=== PATIENT | male | born 1955 | race Caucasian/White ===

== ENCOUNTER 2021-04-30 10:51 | Inpatient (IN) | payer MEDICARE, MEDICAID ==
[2021-04-30] VITALS (17 sets, daily range): BP systolic 100–150; BP diastolic 48–84
[~2021-04-30] VITALS: Ht 177.8 cm; Wt 75.0 kg
[~2021-04-30 10:51] MED LIST: CHOL400T32 PO; GABA-530 PO; LORA-269 PO; PYRI-3 PO; QUET-1 PO; ZIPR60CA7 PO; ceFOXitin 2GM-NS 100mL ADDvant 100 ML IV ONE; famotidine 20mg tablet PO ONE
[2021-04-30] MEDS ORDERED: fentaNYL/PF 50MCG/1 ML 2ML syringe IV PRN ×2 (11:25)
[2021-04-30] MEDS ORDERED: morphine 2 MG/ML inj. syringe IV PRN (11:25)
[2021-04-30] MEDS ORDERED: ringers solution, lacted 1,000 ML IV SCH (11:25)
[2021-04-30] MEDS ORDERED: hydrALAZINE 20mg/ml inj. IV PRN (11:25)
[2021-04-30] MEDS ORDERED: morphine 4 MG/ML inj SYRINge IV PRN (11:25)
[2021-04-30] MEDS ORDERED: labetalol 20mg/4ml (5mg/ml) syringe IV PRN (11:25)
[2021-04-30] MEDS ORDERED: ondansetron/PF 4mg/2ml inj IV PRN (11:25)
[2021-04-30] MEDS: ringers solution, lacted 1,000 ML IV SCH (11:51)
[2021-04-30 12:04] LABS: BASOPHILS % (AUTO) 0.6 % (0-1); EOSINOPHILS # (AUTO) 0.1 X10'3 (0-0.9); EOSINOPHILS % (AUTO) 1.2 % (0-6); LYMPHOCYTES # (AUTO) 1.4 X10'3 (1.1-4.8); LYMPHOCYTES % (AUTO) 23.4 % (21-51); MEAN CORPUSCULAR HEMOGLOBIN 31.9 PG (27.0-31.0); MEAN CORPUSCULAR HGB CONC 33.9 g/dL (33.0-36.5); MEAN CORPUSCULAR VOLUME 94.1 FL (78-98); MEAN PLATELET VOLUME 9.8 FL (7.4-10.4); MONOCYTES # (AUTO) 0.3 X10'3 (0-0.9); MONOCYTES % (AUTO) 5.9 % (2-12); NEUTROPHILS % (AUTO) 68.9 % (42-75); PRE OP HEMATOCRIT 42.9 % (42.0-52.0); PRE OP HEMOGLOBIN 14.5 g/dL (14.0-17.9); PRE OP PLATELET COUNT 127 X10'3 (140-440); RED BLOOD COUNT 4.55 X10'6 (4.70-6.10); RED CELL DISTRIBUTION WIDTH 14.4 % (11.5-14.5)
[2021-04-30 12:14] LABS: ALBUMIN 3.5 G/DL (3.4-5.0); ALKALINE PHOSPHATASE 58 IU/L (46-116); BLOOD UREA NITROGEN 6 MG/DL (7-18); BUN/CREATININE RATIO 7.2 (5.4-32.0); CALCIUM 8.2 MG/DL (8.5-10.1); CHLORIDE 109 MMOL/L (99-107); CREATININE 0.83 MG/DL (0.60-1.10); PRE OP ALT 33 U/L (30-65); PRE OP ANION GAP 7 (8-16); PRE OP AST 31 U/L (10-37); PRE OP GLUCOSE 115 MG/DL (70-104); PRE OP POTASSIUM 4.1 MMOL/L (3.4-5.1); PRE OP SODIUM 141 MMOL/L (135-145); TOTAL CARBON DIOXIDE 24.7 MMOL/L (24-32); TOTAL PROTEIN 6.9 G/DL (6.4-8.2); eGFR > 90 ML/MIN
[2021-04-30] MEDS ORDERED: BUPIVAcaine/PF 2.5 mg/ml (0.25%) 30ml vial ONE (12:26)
[2021-04-30] MEDS ORDERED: iohexol 300 MG/1 ML 50ml polymer ONE (12:27)
[2021-04-30] MEDS ORDERED: ceFAZolin 1000mg inj ONE (12:27)
[2021-04-30] MEDS ORDERED: fentaNYL /PF 50mcg/ml 5ml ampule ONE (12:31)
[2021-04-30] MEDS ORDERED: midazolam 1 mg/ML 2ml injection ONE (12:31)
[2021-04-30] MEDS ORDERED: propofol inj 20 ML IV ONE (12:33)
[2021-04-30] MEDS ORDERED: LIDOcaine 2% (20mg/ml) 5ml vial ONE (12:33)
[2021-04-30] MEDS ORDERED: rocuronium 10mg/ml inj IV ONE (12:33)
[2021-04-30] MEDS ORDERED: BUPIVACAINE liposomal/PF 13.3 MG/ML vial IM ONE (12:37)
[2021-04-30] MEDS ORDERED: BUPIVAcaine/PF 2.5mg/ml (0.25%) 10ml vial ONE (12:37)
[2021-04-30] MEDS ORDERED: sevoflurane 250ml liquid IH ONE (12:44)
[2021-04-30] MEDS ORDERED: neostigmine methylsulfate 1 MG/ML 10ml vial ONE (14:15)
[2021-04-30] MEDS ORDERED: glycopyrrolate 0.2mg/ml inj ONE (14:15)
[2021-04-30] MEDS ORDERED: dexamethasone sod phosphate 4mg/ml inj. ONE (14:15)
[2021-04-30] MEDS ORDERED: ondansetron/PF 4mg/2ml inj ONE (14:15)
[2021-04-30] MEDS ORDERED: phenylephrine 10mg/ml inj. ONE (14:15)
--- NOTE | 2021-04-30 14:45 | NUR ---
Received from OR via , accompanied by Anesthesiologist DR HU and report given by Anesthesiolgist. AWAKENS TO VOICE. VITALS STABLE. DRESSINGS DI. SARAH PAIN. ABD SOFT. SHAIKH WITH CLEAR URINE.
--- NOTE | 2021-04-30 15:48 | NUR ---
RECEIVED REPORT FROM RECOVERY
--- NOTE | 2021-04-30 15:55 | NUR ---
Report called to receiving nurse. Transferred via BED Belongings . Special Issues communicated to receiving nurse.AWAKE AND ORIENTED. VITALS STABLE. DRESSINGS DI. STATES PAIN IMPRIVING. TO SURGICAL RM 345A AT THIS TIME.
[2021-04-30] MEDS ORDERED: LORA-268 PO (16:10)
[2021-04-30] MEDS ORDERED: VITD400T PO (16:10)
[2021-04-30] MEDS ORDERED: GABA300C PO (16:10)
[2021-04-30] MEDS ORDERED: sugammadex 200mg/2ml injection IV ONE (16:23)
--- NOTE | 2021-04-30 16:31 | NUR ---
PT. ORIENTED TO ROOM 345A. CALL LIGHT WITHIN REACH. POST OP VS STARTED AND ARE STABLE. PT HAS NO COMPLAINTS AT THIS TIME OTHER THAN HE FEEL LIKE HE NEEDS TO PEE. F/C DRAINING PROPERLY TO GRAVITY AND PT REASSURED.
[2021-04-30] MEDS ORDERED: naloxone 0.4 mg/ml inj IV PRN (17:30)
[2021-04-30] MEDS: HYDROmorph./NS 0.2 mg/ml CADD 100 ML IV SCH ×3 (18:12→23:00)
--- NOTE | 2021-04-30 18:51 | NUR ---
GAVE REPORT TO SAMY TRIVEDI
--- NOTE | 2021-04-30 19:10 | NUR ---
Patient in room [facility]. I have received report from SHIKHA Aguilar and had the opportunity to ask questions and assume patient care.
[2021-04-30] MEDS: pyridoxine 50mg tablet PO SCH (20:19)
[2021-04-30] MEDS: ziprasidone 20mg capsule PO SCH (20:20)
[2021-04-30] MEDS ORDERED: oxybutynin 5mg tablet PO PRN (20:50)
--- NOTE | 2021-04-30 20:55 | NUR ---
Called Dr Carrion due to pt leaking urine around catheter. Dr ordered ditropan and irrigation of catheter. Pt cath was flushed with 100 ml sterile water with no return into syringe. It was discovered that the catheter was leaking sterile water from a port. The leaking portion was removed and a new bag was attached. The louise started to drain. Will continue to monitor.
[2021-04-30] MEDS: quetiapine 100mg tablet PO SCH (21:44)
[2021-04-30] MEDS: LORazepam 0.5 MG tablet PO SCH (21:45)
[2021-05-01] VITALS: BP 113/71
[2021-05-01] MEDS: gabapentin 300mg capsule PO SCH ×3 (00:44→16:26)
[2021-05-01] MEDS: HYDROmorph./NS 0.2 mg/ml CADD 100 ML IV SCH ×13 (01:00→23:00)
[2021-05-01] MEDS: ringers solution, lacted 1,000 ML IV SCH (03:16)
--- NOTE | 2021-05-01 06:38 | NUR ---
Patient in room [facility] 345. I have received report from SHIKHA Ramos and had the opportunity to ask questions and assume patient care.
[2021-05-01 07:00] VITALS: BP 90/56
[2021-05-01] MEDS: cholecalciferol (vitamin D3) 400 unit (10mcg) tablet PO SCH (08:29)
[2021-05-01] MEDS: LORazepam 0.5 MG tablet PO SCH ×3 (08:29→21:35)
[2021-05-01] MEDS: pyridoxine 50mg tablet PO SCH ×2 (08:29→20:35)
[2021-05-01] MEDS: ziprasidone 20mg capsule PO SCH ×2 (10:41→20:35)
[2021-05-01 10:44] VITALS: BP 102/67
[2021-05-01 14:40] VITALS: BP 104/67
--- NOTE | 2021-05-01 14:45 | NUR ---
300ml of light neil urine collected from louise catheter. Patient tolerated removal of louise catheter well with no issues.
[2021-05-01 18:00] VITALS: BP 102/62
--- NOTE | 2021-05-01 18:15 | NUR ---
Patient in room [facility] 345. I have received report from SHIKHA Watson and had the opportunity to ask questions and assume patient care.
--- NOTE | 2021-05-01 18:35 | NUR ---
Problems reprioritized. Patient report given, questions answered & plan of care reviewed with SHIKHA Ramos.
[2021-05-01 21:21] VITALS: BP 102/65
[2021-05-01] MEDS: quetiapine 100mg tablet PO SCH (21:35)
[2021-05-02] VITALS: BP 105/67
[2021-05-02] MEDS: gabapentin 300mg capsule PO SCH ×4 (00:11→23:51)
[2021-05-02] MEDS: HYDROmorph./NS 0.2 mg/ml CADD 100 ML IV SCH ×12 (01:00→23:00)
--- NOTE | 2021-05-02 06:23 | NUR ---
Problems reprioritized. Patient report given, questions answered & plan of care reviewed with SHIKHA Watson.
--- NOTE | 2021-05-02 06:39 | NUR ---
Patient in room [facility] 345. I have received report from SHIKHA Ramos and had the opportunity to ask questions and assume patient care.
--- NOTE | 2021-05-02 07:14 | NUR ---
Dr Carrion rounded and said Pt may DC when he passes gas, will call for orders when criteria met.
[2021-05-02 08:00] VITALS: BP 110/65
[2021-05-02] MEDS: pyridoxine 50mg tablet PO SCH ×2 (08:08→21:10)
[2021-05-02] MEDS: LORazepam 0.5 MG tablet PO SCH ×3 (08:08→21:10)
[2021-05-02] MEDS: cholecalciferol (vitamin D3) 400 unit (10mcg) tablet PO SCH (08:08)
[2021-05-02] MEDS: ziprasidone 20mg capsule PO SCH ×2 (08:09→21:10)
[2021-05-02 12:00] VITALS: BP 121/65
--- NOTE | 2021-05-02 18:16 | NUR ---
Student documentation: I have reviewed and agree with all interventions, assessments performed and documented by SN Hazel. Student Medication Administration: For this medication-pass time frame, all medication were reviewed, dispensed, administered and documented per hospital policy by SN Hazel.
--- NOTE | 2021-05-02 18:36 | NUR ---
Problems reprioritized. Patient report given, questions answered & plan of care reviewed with SHIKHA Atkinson.
--- NOTE | 2021-05-02 18:59 | NUR ---
Patient in room [facility] 345. I have received report from Hazel AVINA and Shirley TRIVEDI and had the opportunity to ask questions and assume patient care.
[2021-05-02 20:00] VITALS: BP 116/79
[2021-05-02] MEDS: CADD PCA waste documentation MC PRN (20:44)
[2021-05-02] MEDS: quetiapine 100mg tablet PO SCH (21:10)
[2021-05-02 23:50] VITALS: BP 125/71
[2021-05-03] MEDS: HYDROmorph./NS 0.2 mg/ml CADD 100 ML IV SCH ×12 (01:00→23:00)
--- NOTE | 2021-05-03 06:36 | NUR ---
Problems reprioritized. Patient report given, questions answered & plan of care reviewed with Staci TRIVEDI.
--- NOTE | 2021-05-03 06:47 | NUR ---
Patient in room [facility] 345. I have received report from billy carson and had the opportunity to ask questions and assume patient care.
[2021-05-03 08:00] VITALS: BP 114/64
[2021-05-03] MEDS: LORazepam 0.5 MG tablet PO SCH ×3 (08:49→21:07)
[2021-05-03] MEDS: cholecalciferol (vitamin D3) 400 unit (10mcg) tablet PO SCH (08:49)
[2021-05-03] MEDS: gabapentin 300mg capsule PO SCH ×3 (08:49→23:31)
[2021-05-03] MEDS: ziprasidone 20mg capsule PO SCH ×2 (08:50→20:19)
[2021-05-03] MEDS: pyridoxine 50mg tablet PO SCH ×2 (08:50→20:19)
[2021-05-03 11:00] VITALS: BP 116/73
[2021-05-03 19:00] VITALS: BP 133/73
[2021-05-03] MEDS: magnesium hydroxide 30ml (MOM) UD suspension PO SCH (20:20)
[2021-05-03] MEDS: quetiapine 100mg tablet PO SCH (21:07)
[2021-05-04] VITALS: BP 108/74
[2021-05-04] MEDS: HYDROmorph./NS 0.2 mg/ml CADD 100 ML IV SCH ×12 (01:00→23:00)
--- NOTE | 2021-05-04 05:23 | NUR ---
Student documentation: I have reviewed and agree with all interventions, assessments performed and documented by [Dalila AVINA]. Student Medication Administration: For this medication-pass time frame, all medication were reviewed, dispensed, administered and documented per hospital policy by [Dalila AVINA].
--- NOTE | 2021-05-04 06:12 | NUR ---
Problems reprioritized. Patient report given, questions answered & plan of care reviewed with
[2021-05-04 07:00] VITALS: BP 96/64
[2021-05-04] MEDS: LORazepam 0.5 MG tablet PO SCH ×3 (07:47→20:30)
[2021-05-04] MEDS: gabapentin 300mg capsule PO SCH ×3 (07:47→23:16)
[2021-05-04] MEDS: magnesium hydroxide 30ml (MOM) UD suspension PO SCH ×2 (07:47→20:30)
[2021-05-04] MEDS: pyridoxine 50mg tablet PO SCH ×2 (07:48→20:26)
[2021-05-04] MEDS: ziprasidone 20mg capsule PO SCH ×2 (07:48→20:25)
[2021-05-04] MEDS: cholecalciferol (vitamin D3) 400 unit (10mcg) tablet PO SCH (07:48)
--- NOTE | 2021-05-04 10:58 | NUR ---
Initial: Pt s/p laparoscopic resection of sigmoid colon 04/30 per EMR. Pt currently on Clear liquid diet since 04/30 w/ mostly 100% intake of meals though not meeting nutrient needs d/t restrictive diet. Pt has not passed flatus per MD note. Recommend advancing to low fiber diet when medically indicated. Will continue to monitor. Recs: 1. Advance to low fiber diet as medically indicated if MD agreeable 2. Bowel care per rx 3. Weekly wts Addendum: 05/04/21 at [address] Amended: Links added.
[2021-05-04 11:00] VITALS: BP 109/70
[2021-05-04 19:00] VITALS: BP 116/71
--- NOTE | 2021-05-04 19:07 | NUR ---
report given to Brody TRIVEDI. patient awake in bed, no signs of distress. all questions answered
[2021-05-04] MEDS ORDERED: enoxaparin 40mg/0.4ml syringe SUBCUT SCH (20:00)
[2021-05-04] MEDS: quetiapine 100mg tablet PO SCH (20:26)
[2021-05-05] VITALS: BP 125/77
[2021-05-05] MEDS: HYDROmorph./NS 0.2 mg/ml CADD 100 ML IV SCH ×9 (01:00→17:00)
--- NOTE | 2021-05-05 06:50 | NUR ---
Patient in room [facility] 345. I have received report from Brody Lynn and had the opportunity to ask questions and assume patient care.
--- NOTE | 2021-05-05 06:53 | NUR ---
Problems reprioritized. Patient report given, questions answered & plan of care reviewed with HORACIO. Addendum: 05/05/21 at 0653 by Adithya Dominique RN Amended: Links added.
[2021-05-05 07:25] VITALS: BP 107/58
[2021-05-05] MEDS: ziprasidone 20mg capsule PO SCH (07:34)
[2021-05-05] MEDS: magnesium hydroxide 30ml (MOM) UD suspension PO SCH (07:34)
[2021-05-05] MEDS: pyridoxine 50mg tablet PO SCH (07:34)
[2021-05-05] MEDS: gabapentin 300mg capsule PO SCH ×2 (07:34→16:10)
[2021-05-05] MEDS: cholecalciferol (vitamin D3) 400 unit (10mcg) tablet PO SCH (07:34)
[2021-05-05] MEDS: LORazepam 0.5 MG tablet PO SCH ×2 (07:34→13:30)
[2021-05-05 11:00] VITALS: BP 108/70
--- NOTE | 2021-05-05 11:37 | NUR ---
talked to Murali, said pt can be discharged and to call office for having his meds sent to his pharmacy. Called office and they said they sent pt pain meds to [facility].
[2021-05-05] MEDS: CADD PCA waste documentation MC PRN (12:13)
[2021-05-05] MEDS ORDERED: HYDROcodone/acetaminophen 10/325mg tab PO ONE (16:15)
--- NOTE | 2021-05-05 17:34 | NUR ---
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 Somehow the ride was cancelled and we were not notified. Called back to arrange another ride with [facility], but it was unable to be authorized through [facility]. Still currently waiting on ride. Charge nurse on hold with company to rectify situation and get approval so that the patient can go home. Will inform night nurse on progress.
--- NOTE | 2021-05-05 18:14 | NUR ---
Problems reprioritized. Patient report given, questions answered & plan of care reviewed with Alexa TRIVEDI.
--- NOTE | 2021-05-05 18:15 | NUR ---
Patient taken down to front of hospital for D/C by aid. Did not set eyes on patient as in the process of report. Patient had all belongings, IV's had been previously removed by tonie RN. All discharge paperwork reviewed with patient by tonie RN.
== END 2021-05-05 18:17 | disposition home health service (06) | DRG 330 ==
LOC: PAS IN 10:51 → SUR 3N 16:01
PROVIDERS: ADMIT Surgery; ATTEND Surgery
PROC: 0T9B80Z Drainage of Bladder with Drainage Device, Via Natural or Artificial Opening Endoscopic (ICD-10-PCS; 2021-04-30)
PROC: 0DBN4ZZ Excision of Sigmoid Colon, Percutaneous Endoscopic Approach (ICD-10-PCS; principal; 2021-04-30 12:44)
PROC: 0T788DZ Dilation of Bilateral Ureters with Intraluminal Device, Via Natural or Artificial Opening Endoscopic (ICD-10-PCS; 2021-04-30 12:44)
DX: K57.32 Diverticulitis of large intestine without perforation or abscess without bleeding (principal); K56.7 Ileus, unspecified; Z20.822 Contact with and (suspected) exposure to COVID-19
CPT/HCPCS: 36415; 80053; 82948; 85025; 86885; 86900; 86901; 87081; 87635; 88307; 93005; A4215; A4618; A7000; C1758; C1769; C9290; C9399; G0378; J0690; J0694; J1100; J1170; J1650; J2001; J2250; J2270; J2370; J2405; J2704; J2710; J3010; J3490; J7120; Q9967